=== PATIENT | male | born 1950 | race Caucasian/White ===

== ENCOUNTER 2021-02-19 03:32 | Emergency (ER) | payer MEDICARE, BC ==
[~2021-02-19] VITALS: Ht 175.3 cm; Wt 87.0 kg
--- NOTE | 2021-02-19 03:39 | NUR ---
EKG IN TRIAGE
[2021-02-19] MEDS ORDERED: BENZONATATE 100 MG CAPSULE ONE (04:16)
[2021-02-19] MEDS ORDERED: BENZONATATE 100 MG CAPSULE PO ONE (04:30)
--- NOTE | 2021-02-19 04:40 | NUR ---
BEDSIDE REPORT FROM LEON HAGAN. PT CARE TRANSFERRED AT THIS TIME. PT AMBULATING WITH A SMOOTH AND STEADY GAIT AT THIS TIME, NAD, NO OTHER CHANGES IN CONDITION, WCTM.
[2021-02-19 06:00] VITALS: BP 129/77
--- NOTE | 2021-02-19 06:00 | NUR ---
Patient/Caregiver given discharge instructions and they have confirmed that they understand the instructions. Patient ambulatory with steady gait. NAD, all questions answered appropriately, denies additional needs at this time. No personal belongings left in room after discharge.
--- NOTE | 2021-02-19 06:06 | NUR ---
RN GAVE DC INSTRUCTIONS. PT REQUESTING TO SPEAK TO [employer] RN STATING "THIS ROOM WAS NEVER CLEANED PRIOR TO ME BEING PLACED IN HERE". PT SHOWED RN A SMALL AMOUNT OF BLOOD ON THE SPO2 MONITORING CORD WHILE STAING "[facility] SO I KNOW HOW THINGS SHOULD BE DONE". [employer] AWARE AND TO SPEAK WITH PT AT THIS TIME.
== END 2021-02-19 06:10 | disposition home or self-care (01) ==
LOC: ED 06:04
DX: J20.9 Acute bronchitis, unspecified (principal); R94.31 Abnormal electrocardiogram [ECG] [EKG]
CPT/HCPCS: 71046; 93005; 99283